=== PATIENT | female | born 1995 | race African-American/Black ===

== ENCOUNTER 2021-02-02 13:23 | Emergency (ER) | payer SELFPAY ==
[~2021-02-02] VITALS: Ht 165.1 cm; Wt 54.4 kg
--- NOTE | 2021-02-02 14:19 | NUR ---
[email or web address], medical screening exam in progress
[2021-02-02] MEDS ORDERED: ALBUTEROL SULFATE 8 GM HFA.AER.AD IH PRN (14:30)
--- NOTE | 2021-02-02 15:17 | NUR ---
Patient is resting comfortably on gurney with eyes closed, respiration:easy, [id number]% room air.
--- NOTE | 2021-02-02 16:25 | NUR ---
Patient is not in the room per meena Mckoy?
--- NOTE | 2021-02-02 16:26 | NUR ---
[employer] called patient's cell number, no answer and the voicemail is not set up to leave message.
--- NOTE | 2021-02-02 16:27 | NUR ---
Patient's brother was notified by Dr Matthews ( re: patient may still be COVID infected despite negative COVID antigen today. The COVID PCR test is still pending.)
--- NOTE | 2021-02-02 16:29 | NUR ---
Patient eloped from facility per ER physician.
== END 2021-02-02 16:29 | disposition left against medical advice (07) ==
LOC: ER 13:26
DX: J45.901 Unspecified asthma with (acute) exacerbation (principal); Z20.822 Contact with and (suspected) exposure to COVID-19
CPT/HCPCS: 71045; 87400; A4663; J3535; U0003